=== PATIENT | male | born 1925 | race Caucasian/White ===

== ENCOUNTER → 2016-08-03 | Outpatient (CLI) | payer OTHER, MEDICARE | LOC: BHLMT 14:15 | PROVIDERS: ATTEND Internal Medicine Interventional Cardiology | DX: I25.10 Atherosclerotic heart disease of native coronary artery without angina pectoris (principal); I50.32 Chronic diastolic (congestive) heart failure; I48.0 Paroxysmal atrial fibrillation; R07.9 Chest pain, unspecified | CPT/HCPCS: 93005-PO ==

== ENCOUNTER 2016-08-12 17:26 | Inpatient (IN) | payer OTHER, MEDICARE ==
[2016-08-12] MEDS ORDERED: NS 1,000 ML IV ONE (17:30)
--- NOTE | 2016-08-12 17:34 | EDPHY ---
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 He lives up in [place] he was due to have a cardiac catheterization today. However unfortunately cannot make his appointment 9 this morning because there is extensive amount of snow at his house. He is elderly and had no way to get to the hospital. He has missed his cardiac catheterization. During the day developed chest pressure. Tells me 3 episodes lasting 20-30 minutes. Currently no chest pain at this time. Did arrive to the emergency room by EMS where he has no complaints at this time. Does tell me he is tired. Denies chest pain shortness of breath. EMS reports that he has 70% blockage in 1 of his blood vessels. Past Medical History: Coronary artery disease, no stents, AFib on Coumadin Past Surgical History: No recent surgical history Social History: Denies daily use drugs alcohol tobacco products, lives in [place] Family History: Noncontributory ROS REVIEW OF SYSTEMS: A comprehensive 10 point review of systems is otherwise negative aside from elements mentioned in the history of present illness. Exam Constitutional appears well nontoxic, triage nursing summary reviewed, vital signs reviewed, awake/alert. Eyes normal conjunctivae and sclera, EOMI, PERRLA. HENT normal inspection, atraumatic, moist mucus membranes, no epistaxis, neck supple/ no meningismus, no raccoon eyes. Respiratory clear to auscultation bilaterally, normal breath sounds, no respiratory distress, no wheezing. Cardiovascular rate normal, regular rhythm, no murmur, no edema, distal pulses normal. Gastrointestinal soft, non-tender, no rebound, no guarding, normal bowel sounds, no distension, no pulsatile mass. Genitourinary no CVA tenderness. Musculoskeletal no midline vertebral tenderness, full range of motion, no calf swelling, no tenderness of extremities, no meningismus, good pulses, neurovascularly intact. Skin pink, warm, & dry, no rash, skin atraumatic. Neurologic awake, alert and oriented x 3, AAOx3, moves all 4 extremities equally, motor intact, sensory intact, CN II-XII intact, normal cerebellar, normal vision, normal speech. Psychiatric normal mood/affect. Heme/Lymph/Immune no lymphadenopathy. Differential diagnosis includes but is not limited to: ACS, atypical chest pain , pneumothorax, pneumonia, pulmonary embolism, aortic dissection, congestive heart failure, tumor, musculoskeletal pain, esophageal pain, GERD, peptic ulcer disease, pancreatitis Medical Decision Making: Plan for this patient IV establishment, full secured entrance monitor, EKG, blood work, rule out acute coronary syndrome. Re-evaluation: EKG interpretation by me on record in [employer] system. Impression time of EKG 1744, sinus rhythm rate of [address] elevations heels EKG similar to a previous morphology of this EKG when compared to 10/10/2015. 182: Patient's troponin is negative. I did notify Cardiology and spoke with Dr. Knutson, will notify Dr. Fraire that this patient is in the emergency room as he was due to have a cardiac catheterization today. Patient need to be admitted to the hospital for chest pain evaluation and cardiac catheterization. Currently chest pain free at this time. Troponin negative. Vital signs stable. Limited to Dr. Stacy the hospitalist. Source: Patient, EMS - Social History Smoking Status: Former smoker Constitutional: Initial Vital Signs O2 Sat (%) 96 08/12/16 17:30 O2 Delivery Mode Nasal Cannula O2 (L/minute) 3 Allergies/Adverse Reactions: aspirin [Aspirin] Allergy (Severe, Verified 08/12/16 17:34) Other-Enter Comments NSAIDS (Non-Steroidal Anti-Inflamma [Nsaids] Allergy (Severe, Verified 08/12/16 17:34) Other-Enter Comments Home Medications: Medication Instructions Recorded Doxazosin Mesylate 4 mg PO HS 08/12/16 Herbals/Supplements -Info Only 1 ea PO DAILY 08/12/16 Isosorbide Mononitrate [Isosorbide 60 mg PO DAILY 08/12/16 Mononitrate ER] Metoprolol Tartrate [Lopressor 50 25 mg PO BID 08/12/16 mg (*)] Nitroglycerin [Nitrostat 0.4 mg 0.4 mg SL AD PRN 08/12/16 (*)] Omeprazole 40 mg PO DAILY 08/12/16 Warfarin Sodium [Coumadin 5MG (*)] 5 mg PO DAILY 08/12/16 Acetaminophen [Tylenol 325mg (*)] 650 mg PO Q4HRS PRN #0 tab 08/14/16 Enoxaparin [Lovenox 80 MG (*)] 80 mg SC BID #10 syr 08/14/16 Furosemide [Lasix 40 MG (*)] 40 mg PO DAILY 30 Days 08/14/16 Metolazone 2.5 mg PO PRN PRN #30 tablet 08/14/16 Prasugrel HCl [Effient 10mg (*)] 10 mg PO DAILY #30 tab 08/14/16 Medical Decision Making - Data Points Laboratory Results: Laboratory Results 08/13/16 04:01 08/13/16 01:38 Medications Given: Discontinued Medications Diazepam (Valium) 5 mg PO ONCALL ONE Stop: 08/13/16 09:34 Last Admin: 08/13/16 15:47 Dose: Not Given Diphenhydramine HCl (Benadryl) 25 mg PO ONCALL ONE Stop: 08/13/16 09:34 Last Admin: 08/13/16 15:47 Dose: Not Given Doxazosin Mesylate (Cardura) 4 mg PO HS JAH Stop: 02/09/17 20:59 Last Admin: 08/13/16 20:10 Dose: 4 mg Enoxaparin Sodium (Lovenox) 80 mg SC BID JAH Stop: 02/10/17 08:59 Last Admin: 08/14/16 09:59 Dose: 80 mg Famotidine (Pepcid) 20 mg PO ONCALL ONE Stop: 08/13/16 09:34 Last Admin: 08/13/16 15:47 Dose: Not Given Sodium Chloride (Ns) 1,000 mls @ 0 mls/hr IV ONCE ONE PRN Reason: Wide Open Stop: 08/12/16 17:31 Last Admin: 08/12/16 17:49 Dose: 1,000 mls Potassium Chloride (Potassium Cl 10 Meq (Premix)) 100 mls @ 100 mls/hr IV Q1 JAH Stop: 08/13/16 10:59 Last Admin: 08/13/16 09:14 Dose: Not Given Sodium Chloride (Ns) 1,000 mls @ 0 mls/hr IV ONCALL ONE PRN Reason: TKO Stop: 08/13/16 09:34 Last Admin: 08/13/16 15:47 Dose: Not Given Sodium Chloride (Ns) 1,000 mls @ 100 mls/hr IV CONT JAH Stop: 08/14/16 00:14 Last Admin: 08/13/16 16:07 Dose: 1,000 mls Isosorbide Mononitrate (Imdur) 60 mg PO DAILY JAH Stop: 02/09/17 08:59 Last Admin: 08/14/16 09:58 Dose: 60 mg Metoprolol Tartrate (Lopressor) 25 mg PO BID JAH Stop: 02/09/17 08:59 Last Admin: 08/14/16 09:58 Dose: 25 mg Pantoprazole Sodium (Protonix) 40 mg PO DAILY [facility] Stop: 02/09/17 08:59 Last Admin: 08/14/16 09:58 Dose: 40 mg Potassium Chloride (Klor-Con) 40 meq PO ONCE ONE Stop: 08/13/16 09:31 Last Admin: 08/13/16 09:00 Dose: 40 meq Prasugrel (Effient) 10 mg PO DAILY [facility] Stop: 02/10/17 08:59 Last Admin: 08/14/16 09:58 Dose: 10 mg Prasugrel (Effient) 60 mg PO ONCE ONE Stop: 08/13/16 14:10 Last Admin: 08/13/16 15:48 Dose: Not Given Warfarin Sodium (Coumadin) 5 mg PO ONCE ONE Stop: 08/14/16 08:37 Last Admin: 08/14/16 09:58 Dose: 5 mg Departure - Departure Disposition: [facility] Inpatient Acute Clinical Impression: Chest pain Qualifiers: Chest pain type: unspecified Qualified Code(s): R07.9 - Chest pain, unspecified Condition: Fair
--- NOTE | 2016-08-12 17:47 | CPEKG ---
Heart Rate: 73 RR Interval: 822 P-R Interval: 184 QRSD Interval: 100 QT Interval: 428 QTC Interval: 472 P [place]: 62 QRS [place]: 30 T Wave [place]: 5 EKG Severity - BORDERLINE ECG - EKG Impression: SINUS RHYTHM EKG Impression: CONSIDER RVH OR POSTERIOR INFARCT Electronically Signed By: Wyatt Rothman 12-Aug-2016 21:34:07
[2016-08-12 18:08] LABS: % IMMATURE GRANULYOCYTES 0.5 % (0.0-1.1); ABSOLUTE IMMATURE GRANULOCYTES 0.04 10^3/uL (0.00-0.10); ADD DIFF? NO; ADD MORPH? NO; ADD SCAN? NO; ATYPICAL LYMPHOCYTE FLAG 0 (0-99); FRAGMENT RBC FLAG 0 (0-99); HEMATOCRIT 31.4 % (40.0-51.0); HEMOGLOBIN 10.9 g/dL (13.7-17.5); LEFT SHIFT FLG 0 (0-99); LIPEMIA HEMOLYSIS FLAG 90 (0-99); MEAN CELL HEMOGLOBIN 33.1 pg (27.9-34.1); MEAN CELL HEMOGLOBIN CONCENTR. 34.7 g/dL (32.4-36.7); MEAN CELL VOLUME 95.4 fL (81.5-99.8); MEAN PLATELET VOLUME 9.9 fL (8.7-11.7); PLATELET CLUMPS FLAG 0 (0-99); PLATELET COUNT 244 10^3/uL (150-400); RED BLOOD CELL COUNT 3.29 10^6/uL (4.40-6.38); RED CELL DISTRIBUTION WIDTH 13.2 % (11.5-15.2)
[2016-08-12 18:13] LABS: APTT 28.1 SEC (23.0-38.0)
[2016-08-12 18:14] LABS: ALANINE AMINOTRANSFERASE 30 IU/L (21-72); ALBUMIN 3.7 g/dL (3.5-5.0); ALKALINE PHOSPHATASE 55 IU/L (38-126); ANION GAP 10 mEq/L (8-16); ASPARTATE AMINOTRANSFERASE 18 IU/L (17-59); BILIRUBIN,TOTAL 0.9 mg/dL (0.1-1.4); BILIRUBIN-CONJUGATED 0.3 mg/dL (0.0-0.5); BILIRUBIN-UNCONJUGATED 0.6 mg/dL (0.0-1.1); CALCIUM 8.9 mg/dL (8.5-10.4); CARBON DIOXIDE 28 mEq/l (22-31); CHLORIDE 100 mEq/L (97-110); CREATININE 1.5 mg/dL (0.7-1.3); GLOMERULAR FILTRATION RATE 44; GLUCOSE 99 mg/dL (70-100); MAGNESIUM 2.1 mg/dL (1.6-2.3); POTASSIUM 3.3 mEq/L (3.5-5.2); SODIUM 138 mEq/L (134-144); TOTAL PROTEIN 6.9 g/dL (6.3-8.2)
[2016-08-12 18:18] LABS: INR 1.22 (0.83-1.16); PROTIME(PATIENT) 15.4 SEC (12.0-15.0)
[2016-08-12 18:25] LABS: CREATINE KINASE-MB FRACTION 1.39 ng/mL (0-3.19); TROPONIN I < 0.012 ng/mL (0-0.034)
[2016-08-12] MEDS ORDERED: ACETAMINOPHEN 325 MG TAB PO PRN (21:48)
[2016-08-12] MEDS ORDERED: ONDANSETRON DISINTEGRATING 4 MG TAB PO PRN (21:48)
[2016-08-12] MEDS ORDERED: ONDANSETRON 4 MG/2 ML VIAL IVP PRN (21:48)
[2016-08-12] MEDS ORDERED: NITROGLYCERIN 0.4 MG BTL SL PRN (21:50)
--- NOTE | 2016-08-12 22:31 | GHP ---
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 Luis Daniel Fraire today. The patient lives in [place]. There is a significant snowstorm and he was therefore un able to make the hospital. He had a couple episodes of chest pain, 3 or 4 that lasted a few minutes each time so he sought care. When I see the patient, he is currently chest pain-free. He denies P ND, orthopnea or lower extremity edema. No fever or chills. REVIEW OF SYSTEMS: Complete 10-point review of systems conducted, negative except as noted in the H PI. PAST MEDICAL HISTORY: Coronary artery disease. In January 2015, he had an angiogram showing a 70% -80% left circumflex at the ostium upon which was not intervened. His other vessel including his le ft main and RCA looked pretty good. He has also has a history of atrial fibrillation and hypertensi on and BPH. ALLERGIES: Aspirin and NSAIDs. HOME MEDICATIONS: Warfarin, nitroglycerin, metoprolol, metolazone, isosorbide mononitrate, Lasix, d oxazosin. SOCIAL HISTORY: He lives in [place]. He has been there for about 20 years. He is a nonsmoker . He and his split 132 beer at lunch every day. FAMILY HISTORY: Parents . PHYSICAL EXAM: VITAL SIGNS: Temp 36.7, blood pressure 96/59, pulse 67, breathing 18 times a minute , 94% on 2 L. GENERAL: No acute distress, lying flat. HEENT: Sclerae anicteric. Oropharynx clear . Mucous membranes moist. NECK: Supple without lymphadenopathy or JVD. LUNGS: Clear to ausculta tion bilaterally. HEART: S1, S2 without murmurs. ABDOMEN: Soft, nontender, nondistended. LOWER EXTREMITIES: No edema. Calves nontender. SKIN: Without rash. NEUROLOGIC: Nonfocal. LABS: White count 8.6, hematocrit 31.4, platelets are 244,000. INR is 1.2. Sodium 138, potassium 3.3, chloride 100, bicarb 28, BUN 33, creatinine 1.5. This is a little lower than his baseline. Gl ucose 99. BNP is elevated at 851. It has been as high as 4000 but in general is in a relatively lo w number. Troponin less than 0.012. EKG, interpreted by me shows sinus at 73 with normal axis and intervals. No ST or T-wave changes. Chest x-ray, interpreted by me, shows no acute cardiopulmonary disease. I have discussed the case with Dr. Wyatt Rothman. ASSESSMENT AND PLAN: This is an 89-year-old gentleman with chronic stable angina here with ongoing chest pain. 1. Chest pain. I think this is not ACS at this time. I will repeat a troponin now in the morning and follow him on telemetry. Will try to get a scheduled angiogram done tomorrow. 2. Atrial fibrillation. He is in sinus when I seen him. He is anti coagulable. I will hold his w arfarin. It appears he has been doing so as an outpatient and his INR is 1.2. It has been therapeu tic at other times here. 3. Decreased hematocrit. His previous baseline had been in the low 40s. It is currently 31. He d oes not appear to be actively bleeding. We will follow. 4. Elevated BUN and creatinine. I will hold his diuretics. Maybe the patient has been over diures ed. 5. Prophylaxis. Pharmacologic prophylaxis indicated if in the hospital for a prolonged period of t yulia. DISPOSITION: Observation status. /[id number]/MODL
[2016-08-13 05:00] LABS: % IMMATURE GRANULYOCYTES 0.7 % (0.0-1.1); ABSOLUTE IMMATURE GRANULOCYTES 0.05 10^3/uL (0.00-0.10); ADD DIFF? NO; ADD MORPH? NO; ADD SCAN? NO; ATYPICAL LYMPHOCYTE FLAG 0 (0-99); FRAGMENT RBC FLAG 0 (0-99); HEMATOCRIT 29.6 % (40.0-51.0); HEMOGLOBIN 10.1 g/dL (13.7-17.5); LEFT SHIFT FLG 0 (0-99); LIPEMIA HEMOLYSIS FLAG 90 (0-99); MEAN CELL HEMOGLOBIN 32.9 pg (27.9-34.1); MEAN CELL HEMOGLOBIN CONCENTR. 34.1 g/dL (32.4-36.7); MEAN CELL VOLUME 96.4 fL (81.5-99.8); PLATELET CLUMPS FLAG 0 (0-99); PLATELET COUNT 222 10^3/uL (150-400); RED BLOOD CELL COUNT 3.07 10^6/uL (4.40-6.38); RED CELL DISTRIBUTION WIDTH 13.4 % (11.5-15.2)
[2016-08-13 05:29] LABS: ANION GAP 9 mEq/L (8-16); CALCIUM 8.8 mg/dL (8.5-10.4); CARBON DIOXIDE 28 mEq/l (22-31); CHLORIDE 104 mEq/L (97-110); CREATININE 1.2 mg/dL (0.7-1.3); GLOMERULAR FILTRATION RATE 57; GLUCOSE 119 mg/dL (70-100); POTASSIUM 3.2 mEq/L (3.5-5.2); SODIUM 141 mEq/L (134-144)
[2016-08-13 05:30] LABS: TROPONIN I 0.021 ng/mL (0-0.034)
[2016-08-13] MEDS ORDERED: POTASSIUM CL 10 MEQ TAB ONE (08:50)
[2016-08-13] MEDS ORDERED: FUROSEMIDE 40 MG TAB PO SCH (09:00)
[2016-08-13] MEDS ORDERED: POTASSIUM Cl (KCl) 100 ML IV SCH (09:00)
[2016-08-13] MEDS ORDERED: Herbals/Supplements -Info Only PO SCH (09:00)
[2016-08-13] MEDS ORDERED: METOLAZONE 2.5 MG TAB PO SCH (09:00)
[2016-08-13] MEDS: PANTOPRAZOLE SODIUM 40 MG TAB PO SCH (09:13)
[2016-08-13] MEDS: METOPROLOL TARTRATE 25 MG TAB PO SCH ×2 (09:13→20:10)
[2016-08-13] MEDS: ISOSORBIDE MONONITRATE 30 MG TAB.SR PO SCH (09:14)
[2016-08-13] MEDS ORDERED: POTASSIUM CL 10 MEQ TAB PO ONE (09:30)
[2016-08-13] MEDS ORDERED: FAMOTIDINE 20 MG TAB PO ONE (09:33)
[2016-08-13] MEDS ORDERED: diphenhydrAMINE 25 MG CAP PO ONE (09:33)
[2016-08-13] MEDS ORDERED: NS 1,000 ML IV ONE (09:33)
[2016-08-13] MEDS ORDERED: DIAZEPAM 5 MG TAB PO ONE (09:33)
[2016-08-13 09:49] LABS: CHOLESTEROL 153 mg/dL (140-220); CHOLESTEROL/HDL RATIO 5.67 RATIO (1.00-4.97); HIGH DENSITY LIPOPROTEIN 27 mg/dL (40-65); LDL/HDL RATIO 3.41 RATIO (1.00-3.64); LOW DENSITY LIPOPROTEIN 92 mg/dL (80-100); MAGNESIUM 2.2 mg/dL (1.6-2.3); NON-HIGH DENSITY LIPOPROTEIN 126 mg/dL (90-129); TRIGLYCERIDE 172 mg/dL (40-150); VERY LOW DENSITY LIPOPROTEINS 34 mg/dL (8-25)
[2016-08-13] MEDS ORDERED: LIDOCAINE 1% 30 ML SDV ONE (11:21)
[2016-08-13] MEDS ORDERED: MIDAZOLAM 2 MG/2 ML VIAL ONE ×2 (11:21)
[2016-08-13] MEDS ORDERED: fentaNYL 100 MCG/2 ML INJ ONE (11:21)
[2016-08-13] MEDS ORDERED: BIVALIRUDIN 250 MG/5 ML VIAL IV ONE (11:22)
[2016-08-13] MEDS ORDERED: NITROGLYCERIN 1,500 MCG/15 ML VIAL MISC ONE ×2 (11:22→13:04)
[2016-08-13] MEDS ORDERED: IOPAMIDOL (ISOVUE-370) 150 ML BTL IV ONE ×3 (11:22→13:15)
[2016-08-13] MEDS ORDERED: ATROPINE SULFATE 1 MG/10 ML SYR ONE (12:54)
[2016-08-13] MEDS ORDERED: EPINEPHrine 1 MG/10 ML SYR IVP ONE (12:54)
[2016-08-13] MEDS ORDERED: PRASUGREL HCL 10 MG TAB ONE (13:30)
[2016-08-13] MEDS ORDERED: HYDROCODONE/APAP 5/325 TAB PO PRN (14:09)
[2016-08-13] MEDS ORDERED: PRASUGREL HCL 10 MG TAB PO ONE (14:09)
[2016-08-13] MEDS ORDERED: LORazepam 2 MG/ML INJ IVP PRN (14:09)
[2016-08-13] MEDS ORDERED: TEMAZEPAM 15 MG CAP PO PRN (14:09)
[2016-08-13] MEDS ORDERED: ATROPINE SULFATE 1 MG/10 ML SYR IVP PRN (14:09)
[2016-08-13] MEDS ORDERED: NS 1,000 ML IV SCH (14:15)
--- NOTE | 2016-08-13 14:26 | PDDXCAT ---
Diagnostic Cath Note - . Date: 08/13/16 [employer]: [place] Indication: CCC Class III and IV angina on medical treatment - Procedure Access: right groin Procedure: left heart catheterization, coronary angiography, left ventriculogram , other (IVUS of ramus intermedius; PCI of ramus intermedius) - Materials Left Heart Cath size: 7F Left Heart Cath materials: standard multipack (JL4, JR4, pigtail) - Findings-Left Heart Catheterization LM: Normal. LAD: Mild irregularities. LCX: Ostial 50%; (appears significantly less severe than Jan 2015 catheterization); o/w mild irregularities. RCA: Mild irregularities. Ramus: Two serial, proximal lesions up to 60 to 70% angiographically; (IVUS revealed high grade stenoses with CSA < 4 sq mm); o/w mild irregularites. LVEF: 55% Wall motion: Inferobasilar dyskinesis. Complications: None Estimated blood loss: <50ml Closure method: Angioseal Assessment: 1) Overall preserved LV systolic function with inferobasilar dyskinesis consistent with a prior circumflex territory SC. 2) Coronary artery disease as described above. 3) Successful PCI of the ramus intermedius using a single bare-metal stent. Plan: The patient will be started on Effient as single antiplatelet therapy because of his history of aspirin allergy and inlight of the fact that he is on chronic systemic anticoagulation with warfarin for his history of paroxysmal atrial fibrillation. Since he cannot take aspirin, he should be bridged with Lovenox as he restarts his warfarin. I would like for him to have an INR performed Tuesday or of next week. In a few weeks, his Effient can be held to allow him to undergo a previously planned knee replacement surgery. Genetic testing for clopidogrel metabolism has been requested. Depending on those results, he will likely be placed on clopidogrel as his antiplatelet agent for long-term prevention of acute coronary events. Intervention: Based on his clinical history and diagnostic angiography, the decision was made to perform intravascular ultrasound of the ramus intermedius and circumflex with possible PCI of both. The patient received intravenous Angiomax. A 7 Telugu CLS 4.0 guide catheter was advanced to the left main. An intuition guidewire was advanced to the distal portion of the ramus intermedius. An IVUS catheter was advanced to the midportion of the vessel and a pullback examination was performed demonstrating diffuse, significant atherosclerosis and at least 2 areas of high-grade stenosis with cross-sectional area less than 4.0 mm. Therefore, the decision was made to perform PCI of the ramus intermedius. Predilatation of the proximal ramus was performed using a 2.5 x 15 mm Emerge balloon. A 2.75 x 20 mm Rebel stent was advanced into position and was deployed at high pressure. Subsequent angiography demonstrated 0% residual stenosis and ANGIE-III flow. Multiple attempts were made to pass the guidewire into the circumflex. However, because of the acutely angulated take-off of the circumflex, these were unsuccessful. At this point I felt that the ramus intermedius was the lesion most responsible for the patient's angina and that this had been Effectively treated. The inferobasilar dyskinetic zone on the patient's left ventriculogram fits the distribution of the circumflex and a November 2014 nuclear stress test demonstrated a fixed defect in this territory with minimal scott-infarction reversible ischemia. If the patient continues to have significant angina, a repeat attempt at PCI of the circumflex can be considered. Patient Problems: Problems Problem Status Onset Chest pain Acute
--- NOTE | 2016-08-13 14:36 | CPEKG ---
Heart Rate: 68 RR Interval: 882 P-R Interval: 188 QRSD Interval: 86 QT Interval: 432 QTC Interval: 460 P [place]: 64 QRS [place]: -15 T Wave [place]: -1 EKG Severity - ABNORMAL ECG - EKG Impression: SINUS RHYTHM EKG Impression: CONSIDER RVH OR POSTERIOR INFARCT EKG Impression: INFERIOR INFARCT, AGE INDETERMINATE Electronically Signed By: Lula Simpson 13-Aug-2016 14:40:56
--- NOTE | 2016-08-13 15:03 | HOSPPROG ---
Hospitalist Progress Note Assessment/Plan: 89 y/o male new to my care today presenting with: #chest pain found to have 60-70% occlusion of the ramus s/p successful PCI of the ramus intermedius using a single bare-metal stent -cont care per cards #Anemia (stable) -recommend outpatient workup #jacqui (improving) -repeat labs in AM #mild hypokalemia -replace per protocol Dispo: change to inpatient status Subjective: no chest pain. no sob Objective: Vital Signs Temp Pulse Resp BP Pulse Ox 36.6 C 63 14 136/73 H 96 08/13/16 07:45 08/13/16 09:13 08/13/16 07:45 08/13/16 09:13 08/13/16 07:45 Laboratory Results 08/13/16 04:01 08/13/16 01:38 08/12/16 08/13/16 08/14/16 05:59 05:59 05:59 Intake Total 1300 Output Total 325 Balance 1300 -325 PT 15.4 SEC (12.0-15.0) H 08/12/16 17:54 INR 1.22 (0.83-1.16) H 08/12/16 17:54 - Physical Exam Constitutional: no apparent distress, appears nourished, not in pain Cardiovascular: regular rate and rhythym, no murmur, rub, or gallop Respiratory: no respiratory distress, no rales or rhonchi, clear to auscultation Gastrointestinal: normoactive bowel sounds, soft, non-tender abdomen, no palpable masses Genitourinary: no bladder fullness, no bladder tenderness ICD10 Worksheet Patient Problems: Problems Problem Status Onset Chest pain Acute
[2016-08-13] MEDS ORDERED: DOXAZOSIN MESYLATE 4 MG TAB PO SCH (21:00)
[2016-08-14 05:23] LABS: HEMATOCRIT 32.4 % (40.0-51.0); HEMOGLOBIN 10.8 g/dL (13.7-17.5); MEAN CELL HEMOGLOBIN 32.8 pg (27.9-34.1); MEAN CELL HEMOGLOBIN CONCENTR. 33.3 g/dL (32.4-36.7); MEAN CELL VOLUME 98.5 fL (81.5-99.8); RED BLOOD CELL COUNT 3.29 10^6/uL (4.40-6.38); RED CELL DISTRIBUTION WIDTH 13.6 % (11.5-15.2)
[2016-08-14 05:24] LABS: % IMMATURE GRANULYOCYTES 0.6 % (0.0-1.1); ABSOLUTE IMMATURE GRANULOCYTES 0.05 10^3/uL (0.00-0.10); ADD DIFF? NO; ADD MORPH? NO; ADD SCAN? NO; ATYPICAL LYMPHOCYTE FLAG 0 (0-99); FRAGMENT RBC FLAG 0 (0-99); LEFT SHIFT FLG 0 (0-99); LIPEMIA HEMOLYSIS FLAG 80 (0-99); MEAN PLATELET VOLUME 10.2 fL (8.7-11.7); PLATELET CLUMPS FLAG 10 (0-99); PLATELET COUNT 248 10^3/uL (150-400)
[2016-08-14 06:01] LABS: ANION GAP 8 mEq/L (8-16); ASPARTATE AMINOTRANSFERASE 16 IU/L (17-59); BILIRUBIN,TOTAL 0.6 mg/dL (0.1-1.4); CALCIUM 8.7 mg/dL (8.5-10.4); CARBON DIOXIDE 25 mEq/l (22-31); CHLORIDE 109 mEq/L (97-110); GLOMERULAR FILTRATION RATE > 60; GLUCOSE 90 mg/dL (70-100); LACTATE DEHYDROGENASE 361 IU/L (313-618); MAGNESIUM 2.1 mg/dL (1.6-2.3); POTASSIUM 4.1 mEq/L (3.5-5.2); SODIUM 142 mEq/L (134-144)
--- NOTE | 2016-08-14 06:01 | CPEKG ---
Heart Rate: 68 RR Interval: 882 P-R Interval: 172 QRSD Interval: 98 QT Interval: 404 QTC Interval: 430 P [place]: 64 QRS [place]: 2 T Wave [place]: 21 EKG Severity - ABNORMAL ECG - EKG Impression: SINUS RHYTHM EKG Impression: CONSIDER RIGHT VENTRICULAR HYPERTROPHY EKG Impression: PROBABLE LEFT VENTRICULAR HYPERTROPHY Electronically Signed By: Lula Simpson 14-Aug-2016 12:16:21
[2016-08-14] MEDS ORDERED: WARFARIN SODIUM 5 MG TAB PO ONE (08:36)
[2016-08-14] MEDS ORDERED: PRASUGREL HCL 10 MG TAB PO SCH (09:00)
[2016-08-14] MEDS ORDERED: ENOXAPARIN 80 MG/0.8 ML SYR SC SCH (09:00)
--- NOTE | 2016-08-14 09:21 | PDDCSUM ---
Discharge Summary Discharge Summary: Dates of service 08/12-08/14/16 Discharge dx: # Unstable angina # CAD # a fib # deconditioning Consultations: cardiology Procedures performed: coronary angiography, PCI to [facility] Hospital course by problem: #chest pain/unstable angina: found to have 60-70% occlusion of the ramus s/p successful PCI of the ramus intermedius using a single bare-metal stent. continue bb and isosorbide # CAD: as above, med mgmt including effient (intolerant of asa) and bb. No statin, LDL of 92. Cardiology aware he is not on statin and they will address when he follows up with them #Anemia (stable) -recommend outpatient workup # afib: rate controlled, dc home on AC with lovenox and warfarin #jacqui (improving) resolved, pre renal #mild hypokalemia -replace per protocol # deconditioning: snf recommended but patient refused, understands risk of going home and states that he is not considering other options no matter what. Dc with home health DC home with home health F/u with pcp and cardiology > 35 minutes spent in dc of patient more than half in coordination of care with CM/cardiology/PT and face to face counseling regarding dc to home with home health rather than to snf with patient and his
--- NOTE | 2016-08-14 09:29 | PDCARPN ---
Cardiology Progress Note Chief Complaint: unstable angina Assessment/Plan: Assessment: 89M PMH CAD/no previous PCI due to anatomy, DCHF, PAF on Coumadin for [id number] of 3-4, dyslipidemia intolerant of statin, who was having worsening despite 2 anti-anginals and BB, here for PCI. Pt new to me. Chart and outpatient notes reviewed and summarized. INR for today. #. unstable angina: s/p PCI to [place] still has obstructive lesion in LCx follow medically with Dr. Fraire continue anti-anginals intolerant of ASA (listed as allergy) so will be treated with Warfarin and Effient INR today and bridge with [facility] Anticoag clinic on Tuesday #. DCHF: appears euvolemic currently continue Lasix but do not take Metolazone unless weight gain >3 lbs #. PAF: no AF on monitoring Warfarin with bridging #. dyslipidemia: LDL 92 not on statin #. hypokalemia: resolved #. DANIEL: resolved will dose Metolazone only prn Plan: Stable to discharge with outpatient follow-up 08/14/16 09:23 08/14/16 09:29 Subjective: Reports knee pain and weakness. No dyspnea or edema currently though knees and ankles will occasionally swell. No cp. Reviewed/Discussed With: hospitalist Objective: Vital Signs (8 Hrs) Temp Pulse Resp BP Pulse Ox 08/14/16 03:56 98.1 F 70 18 137/68 H 92 Intake/Output (24 Hrs) 08/13/16 08/14/16 08/15/16 05:59 05:59 05:59 Intake Total 850 Output Total 725 Balance 125 Intake: Oral (ml) 500 IV Intake (ml) 350 Output: Urine (ml) 725 Urinal 725 Other: Number of Voids Urinal 1 Result Diagrams: 08/14/16 03:53 08/14/16 03:53 Telemetry: SR - Physical Exam Constitutional: cachectic, No general pain Eyes: anicteric sclera Cardiovascular: regular rate and rhythm, no murmurs Respiratory: clear to auscultate bilat, no crackles Gastrointestinal: normoactive bowel sounds, No tenderness, No ascites Genitourinary: No mack in urethra Skin: no rashes, no edema Neurologic: AAOx3 Psychiatric: cooperative, interactive ICD10 Worksheet Patient Problems: Problems Problem Status Onset Chest pain Acute
[2016-08-14] MEDS: METOPROLOL TARTRATE 25 MG TAB PO SCH (09:58)
[2016-08-14] MEDS: PANTOPRAZOLE SODIUM 40 MG TAB PO SCH (09:58)
[2016-08-14] MEDS: ISOSORBIDE MONONITRATE 30 MG TAB.SR PO SCH (09:58)
[2016-08-14 11:01] VITALS: RESP 20; O2SAT 96
[2016-08-14 11:20] LABS: INR 1.18 (0.83-1.16)
[2016-08-14 12:34] VITALS: PULSE 68; TEMP 98.4
[2016-08-14 12:36] VITALS: BP 94/54
--- NOTE | 2016-08-14 12:47 | PDIAF ---
- Diagnosis Code Status: Full Code - Medication Management Discharge Medications: Medications to Continue on Transfer Doxazosin Mesylate 4 mg PO HS 08/12/16 [Last Taken 08/11/16] Herbals/Supplements -Info Only 1 ea PO DAILY 08/12/16 [Last Taken Unknown] Isosorbide Mononitrate [Isosorbide Mononitrate ER] 60 mg PO DAILY 08/12/16 [ Last Taken 08/12/16] Metoprolol Tartrate [Lopressor 50 mg (*)] 25 mg PO BID 08/12/16 [Last Taken 09:00 25MG] Nitroglycerin [Nitrostat 0.4 mg (*)] 0.4 mg SL AD PRN 08/12/16 [Last Taken Unknown] Omeprazole 40 mg PO DAILY 08/12/16 [Last Taken 08/12/16] Warfarin Sodium [Coumadin 5MG (*)] 5 mg PO DAILY 08/12/16 [Last Taken 08/08/16] Acetaminophen [Tylenol 325mg (*)] 650 mg PO Q4HRS PRN #0 tab 08/14/16 [Last Taken Unknown] Enoxaparin [Lovenox 80 MG (*)] 80 mg SC BID #10 syr 08/14/16 [Last Taken Unknown ] Furosemide [Lasix 40 MG (*)] 40 mg PO DAILY 30 Days 08/14/16 [Last Taken Unknown ] Metolazone 2.5 mg PO PRN PRN #30 tablet 08/14/16 [Last Taken Unknown] Prasugrel HCl [Effient 10mg (*)] 10 mg PO DAILY #30 tab 08/14/16 [Last Taken Unknown] Discharge Medications: Refer to the Discharge Home Medication list for PRN reason. - Orders Services needed: Home Care, Registered Nurse, Physical Therapy, Occupational Therapy Home Care Face to Face: I certify that this patient was under my care and that I had the required [id number] encounter meeting the encounter requirements on the discharge day. My findings support the fact that the patient is homebound as defined in CMS Chapter 7 Medicare Benefits Manual 30.1.1, The condition of the patient is such that there exists a normal inability to leave home and consequently, leaving home would require a considerable and taxing effort. Diet Recommendation: cardiac -low fat low salt Additional: OK to wait for 1 week until home health can come to evaluate - Labs/Radiology PT/INR Date: 08/17/16 (q3 days until INR between 2-3) - Follow Up Care Current Providers and Referrals: Patient,NotPresent [Unknown] - As per Instructions Luis Daniel Fraire MD [Medical Doctor] - 08/24/16 2:45 pm
[2016-08-16 14:10] LABS: 2C19S INTERPRETATION See Comments
== END 2016-08-14 14:35 | disposition home health service (06) | DRG 249 ==
LOC: EDUNIT# → INTOOBSV 18:32 → F2W 19:37 → OBSVTOIN 08-13 15:00
PROVIDERS: ADMIT Internal Medicine; ATTEND Internal Medicine
DX: I25.110 Atherosclerotic heart disease of native coronary artery with unstable angina pectoris (principal); E87.6 Hypokalemia; N17.9 Acute kidney failure, unspecified; I48.0 Paroxysmal atrial fibrillation; D64.9 Anemia, unspecified; I10 Essential (primary) hypertension; N40.0 Benign prostatic hyperplasia without lower urinary tract symptoms; Z79.01 Long term (current) use of anticoagulants
CPT/HCPCS: 81225-90; 97116-GP; 97162-GP; C1725; C1753; C1760; C1769; C1876; C1887; G0378; G8978-GP-CJ; G8979-GP-CI; J0461; J0583; J1644; J1650; J2250; J3010; Q9967

== ENCOUNTER 2016-10-13 09:38 | Inpatient (IN) | payer OTHER, MEDICARE ==
--- NOTE | 2016-10-11 08:48 | GHP ---
[f rep st] PREOP HISTORY AND PHYSICAL DATE OF ADMISSION: He will be an AM admission for surgery on October 13, 2016. PROBLEM: Bilateral knee degenerative arthritis. HISTORY OF PRESENT ILLNESS: The patient is an 89-year-old man admitted for a left total knee arthroplasty. He has a long history of progressive bilateral knee pain. He has had Supartz injections on multiple occasions with mild benefit. 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 Both knees are equally painful. Because of progressive pain and limitation of activities, he will undergo a left total knee arthroplasty. PAST MEDICAL HISTORY: He has a history of atrial fibrillation. He underwent a coronary artery stent on August 13, 2016. Dr. Luis Daniel Fraire is his attending physician. He has been on Plavix. He is also treated for hypertension. There is no history of DVT, hepatitis, or sleep apnea. CURRENT MEDICATIONS: Plavix 50 mg per day. Doxazosin 8 mg per day for his prostate. Lasix 40 mg per day. Metolazone 2.5 mg p.r.n. Metoprolol 50 mg 1/2 tablet b.i.d. Omeprazole 40 mg per day. Ranexa 1,000 mg extended release daily. Coumadin 5 mg 3 days a week and 7.5 mg 4 days a week. ALLERGIES: Aspirin causes swelling. Metal allergies: None. Latex allergy: None. SOCIAL HISTORY: He does not smoke cigarettes and occasionally drinks alcohol. 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 He is . FAMILY HISTORY: Positive for cancer. PHYSICAL EXAMINATION: GENERAL: He is an alert, healthy-appearing, elderly man. Height 5 feet 10 inches. Weight 185 pounds. BMI 26.5. EYES: The conjunctivae and sclerae are clear. Pupils are round, reactive. MOUTH: Good oral hygiene. No loose teeth. CHEST: Clear. HEART: Regular rhythm. No murmurs. EXTREMITIES: He lacks a few degrees of full extension and flexes to 110 degrees. Moderate patellofemoral crepitation. IMAGING: His films show severe patellofemoral degenerative arthritis. He is bone on bone in the lateral facet. Moderate degenerative changes in his tibiofemoral joints. IMPRESSION: On admission: 1. Bilateral knee degenerative arthritis. He is prepared for left total knee arthroplasty. 2. Coronary artery disease. Recent stent. History of atrial fibrillation. 3. Treatment for hypertension. PLAN: He will undergo a left total knee arthroplasty. The surgery has been described to him, including the risks, complications, expectations, and recovery time. I have stressed the importance of postoperative physical therapy. All his questions have been answered and he consents to surgery. I have discussed his care with Dr. Luis Daniel Fraire. Dr. Fraire has cleared him to proceed with surgery, even with his recent stent. Postoperatively, I will treat him with Lovenox and then restart his Coumadin. He has been on 5 mg 3 days a week and 7.5 mg 4 days a week. The rapid anticoagulation postoperatively will somewhat complicate his postoperative care. All his questions have been answered and he consents to surgery. Copy requested to: DESI Gonzales Dr. /[id number]/MODL MTDD
[~2016-10-13 09:38] MED LIST: POVIDONE-IODINE 20 ML in SODIUM CL IRRIG SOLUTION 500 ML IRR ONE; ROPIVACAINE 0.2% 80 MG, EPINEPHrine 0.2 MG, KETOROLAC TROMETHAMINE 30 MG in BAG 0 ML IU ONE; TRANEXAMIC ACID 750 MG in NS 100 ML IV ONE
[2016-10-13] MEDS ORDERED: DEXAMETHASONE 4 MG/ML VIAL IVP ONE (09:57)
[2016-10-13] MEDS ORDERED: ceFAZolin 2 GM/DEXTROSE 100 ML IV ONE (09:57)
[2016-10-13] MEDS ORDERED: ACETAMINOPHEN 325 MG TAB PO ONE (09:57)
[2016-10-13] MEDS ORDERED: FAMOTIDINE 20 MG TAB PO ONE (09:57)
[2016-10-13] MEDS ORDERED: LIDOCAINE 1% 2 ML INJ ONE (10:02)
[2016-10-13] MEDS ORDERED: LIDOCAINE 1% 2 ML INJ ID PRN (11:10)
[2016-10-13] MEDS ORDERED: LR 1,000 ML IV ONE (11:10)
[2016-10-13 11:14] LABS: INR 1.15 (0.83-1.16); PROTIME(PATIENT) 14.7 SEC (12.0-15.0)
[2016-10-13] MEDS ORDERED: METOPROLOL TARTRATE 25 MG TAB PO ONE (11:23)
--- NOTE | 2016-10-13 11:28 | PDANEPAE ---
ANE History of Present Illness 89 year old male with bilateral knee OA, here for L TKA. ANE Past Medical History - Cardiovascular History Hx Hypertension: Yes Hx Arrhythmias: No Hx Chest Pain: No Hx Coronary Artery / Peripheral Vascular Disease: Yes Hx CHF / Valvular Disease: No Hx Palpitations: No Cardiovascular History Comment: denies CP after stent placed 08-13-16. At time of stent placement, unable to enter the circumflex which also has stenosis per imaging. However stenting of ramus seems to have alleviated anginal symptoms at this time. - Pulmonary History Hx COPD: No Hx Asthma/Reactive Airway Disease: No Hx Recent Upper Respiratory Infection: No Hx Oxygen in Use at Home: Yes O2 in Use at Home (L/minute): O2 at 2L NC at night-sleeping Hx Sleep Apnea: No Sleep Apnea Screening Result - Last Documented: Positive Pulmonary History Comment: SOB on walking stairs. Denies asthma, COPD. Pulse Ox 96-97% at 8,500 ft - at home. - Neurologic History Hx Cerebrovascular Accident: No Hx Seizures: No Hx Dementia: No - Endocrine History Hx Diabetes: No - Renal History Hx Renal Disorders: No - Liver History Hx Hepatic Disorders: No - Neurological & Psychiatric Hx Hx Neurological and Psychiatric Disorders: Yes Neurological / Psychiatric History Comment: neck stiffness. Back soreness. - Cancer History Hx Cancer: Yes Cancer History Comment: Prostate CA - Congenital Disorder History Hx Congenital Disorders: No - GI History Hx Gastrointestinal Disorders: Yes Gastrointestinal History Comment: GERD - Other Health History Other Health History: OA bilat knees, hips. R hand "scab" -(not CA) - Chronic Pain History Chronic Pain: Yes (knees) - Surgical History Prior Surgeries: Heart Cath (w/bare metal stenting) 08-13-16. bilat arm fx surgery. R rotator cuff. Lap clare 2009. L ulnar nerve repositioned. hemorrhoidectomy 1983. Prostate-seed implantation ANE Review of Systems Review of systems is: negative (No angina since stent placed in July.) Review of Systems: No URI/fever x2 weeks. - Exercise capacity METS (RN): 3 METS - Systems Constitutional: Reports: no symptoms Cardiac: Reports: no symptoms Respiratory: Reports: no symptoms ANE Patient History - Allergies Allergies/Adverse Reactions: aspirin [Aspirin] Allergy (Severe, Verified 10/05/16 11:54) Other-Enter Comments NSAIDS (Non-Steroidal Anti-Inflamma [Nsaids] Allergy (Severe, Verified 10/05/16 11:54) Other-Enter Comments - Home Medications Home medications: home medication list seen and reviewed Home Medications: Doxazosin Mesylate 4 mg PO HS 08/12/16 [Last Taken 10/12/16 22:00] Herbals/Supplements -Info Only 1 ea PO DAILY 08/12/16 [Last Taken 10/12/16 10:00 ] Isosorbide Mononitrate [Isosorbide Mononitrate ER] 60 mg PO DAILY 08/12/16 [ Last Taken 10/12/16 08:00] Metoprolol Tartrate [Lopressor 50 mg (*)] 25 mg PO BID 08/12/16 [Last Taken 20:00] Nitroglycerin [Nitrostat 0.4 mg (*)] 0.4 mg SL AD PRN 08/12/16 [Last Taken Unknown] Omeprazole 40 mg PO DAILY 08/12/16 [Last Taken 10/13/16 07:30] Warfarin Sodium [Coumadin 5MG (*)] 5 mg PO DAILY 08/12/16 [Last Taken 10/08/16] - NPO status NPO Since - Liquids (Date): 10/12/16 NPO Since - Liquids (Time): 20:00 NPO Since - Solids (Date): 10/12/16 NPO Since - Solids (Time): 20:00 - Anes Hx Anes Hx: no prior problems - Smoking Hx Smoking Status: Former smoker Marijuana use: No - Alcohol Use Alcohol Use: Other (has a beer daily) - Family Anes Hx Family Anes Hx: neg - N/A ANE Labs/Vital Signs - Labs - CBC WBC: reviewed, anemia noted - Vital Signs Blood Pressure: 154/83 Heart Rate: 56 Respiratory Rate: 16 O2 Sat (%): 95 Height: 177.8 cm Weight: 76.204 kg ANE Physical Exam - Airway Neck exam: FROM Mallampati Score: Class 3 Mouth exam: normal dental/mouth exam - Pulmonary Pulmonary: clear to auscultation - Cardiovascular Cardiovascular: regular rate and rhythym, systolic murmur (faint I/ systolic murmur) - ASA Status ASA Status: III ANE Anesthesia Plan Anesthesia Plan: spinal
[2016-10-13] MEDS ORDERED: ceFAZolin 1 GM/5 ML SYR ONE ×2 (11:42→13:28)
[2016-10-13] MEDS ORDERED: VANCOMYCIN 1 GM VIAL ONE ×2 (11:42→12:08)
--- NOTE | 2016-10-13 12:15 | PDHPUP ---
History & Physical Update H&P update statement: This history and physical update is based on an assessment of the patient which was completed after admission or registration (within 24 hours), but prior to the surgery/procedure. H&P update: H&P reviewed & patient examined, no change in patient's condition since H&P completed
[2016-10-13] MEDS ORDERED: PROPOFOL/EMULSION 500 MG/50 ML BOTTLE IV ONE (12:54)
[2016-10-13] MEDS ORDERED: fentaNYL 100 MCG/2 ML INJ ONE (12:54)
[2016-10-13] MEDS ORDERED: ENALAPRILAT DIHYDRATE 1.25 MG/ML VIAL ONE (13:42)
[2016-10-13] MEDS ORDERED: DEXAMETHASONE 4 MG/ML VIAL ONE (13:42)
[2016-10-13] MEDS ORDERED: LIDOCAINE 2% 5 ML SDV ONE (13:42)
[2016-10-13] MEDS ORDERED: hydrALAZINE 20 MG/ML VIAL ONE (14:12)
[2016-10-13] MEDS ORDERED: BUPIVACAINE 0.5% 30 ML SDV ONE (14:47)
[2016-10-13] MEDS ORDERED: NALOXONE HCL 0.4 MG/ML INJ IVP PRN (15:01)
[2016-10-13] MEDS ORDERED: PROMETHAZINE HCL 25 MG/ML INJ IVP PRN ×2 (15:01→15:33)
[2016-10-13] MEDS ORDERED: fentaNYL 100 MCG/2 ML INJ IVP PRN (15:01)
[2016-10-13] MEDS ORDERED: OXYCODONE/APAP 5/325 TAB PO PRN (15:01)
[2016-10-13] MEDS ORDERED: ACETAMINOPHEN 500 MG TAB PO PRN (15:01)
[2016-10-13] MEDS ORDERED: ONDANSETRON 4 MG/2 ML VIAL IVP PRN ×2 (15:01→15:33)
--- NOTE | 2016-10-13 15:13 | POSTOPPROG ---
Post Op Note Date of Operation: 10/13/16 Surgeon: Vaibhav Yu Newspaper Vendor: Ari Anesthesiologist: Edie Anesthesia: IV Sedation, Spinal Post-op Diagnosis: Left knee severe degenerative arthritis. Procedure: Left total knee arthroplasty. Inf/Abcess present in the surg proc area at time of surgery?: No EBL: 100-500 (Adductor canal block)
[2016-10-13] MEDS ORDERED: LACTULOSE 20 GM/30 ML UDCUP PO PRN (15:33)
[2016-10-13] MEDS ORDERED: POLYETHYLENE GLYCOL 3350 17 GM PKT PO PRN (15:33)
[2016-10-13] MEDS ORDERED: METOCLOPRAMIDE 10 MG/2 ML VIAL IVP PRN (15:33)
[2016-10-13] MEDS ORDERED: NS 500 ML IV PRN (15:33)
[2016-10-13] MEDS ORDERED: diphenhydrAMINE 25 MG CAP PO PRN (15:33)
[2016-10-13] MEDS ORDERED: ONDANSETRON DISINTEGRATING 4 MG TAB PO PRN (15:33)
[2016-10-13] MEDS ORDERED: TEMAZEPAM 15 MG CAP PO PRN (15:33)
[2016-10-13] MEDS ORDERED: PHARMACY PAIN CONSULT 1 EA MISC PRN (15:33)
[2016-10-13] MEDS ORDERED: DIPHENOXYLATE/ATROPINE LOMOTIL 1 TAB PO PRN (15:33)
[2016-10-13] MEDS ORDERED: MAGNESIUM HYDROXIDE 30 ML UDCUP PO PRN (15:33)
[2016-10-13] MEDS ORDERED: BISACODYL 10 MG SUPP PR PRN (15:33)
[2016-10-13] MEDS ORDERED: PROMETHAZINE HCL 25 MG SUPPR PR PRN (15:33)
--- NOTE | 2016-10-13 15:45 | POSTANESTH ---
Post Anesthetic Evaluation Cardiovascular Status: Normal, Stable Respiratory Status: Normal, Stable Level of Consciousness/Mental Status: Can Participate in Eval, Alert and Oriented Pain Control: Adequate, Prn Tx Ordered Nausea/Vomiting Control: Adequate, Prn Tx Ordered Complications Possibly Related to Anesthesia: None Noted (Pt able to move feet bilaterally. Insensate still secondary to spinal block.)
[2016-10-13] MEDS ORDERED: oxyCODONE IR 5 MG TAB ONE (16:48)
[2016-10-13] MEDS: oxyCODONE IR 5 MG TAB PO PRN ×4 (16:49→23:49)
[2016-10-13] MEDS: ACETAMINOPHEN 325 MG TAB PO SCH ×2 (17:58→23:48)
[2016-10-13] MEDS: WARFARIN SODIUM 5 MG TAB PO SCH (17:59)
[2016-10-13] MEDS: SENNOSIDES/DOCUSATE SODIUM TAB PO SCH (21:03)
[2016-10-13] MEDS: CYCLOBENZAPRINE 10 MG TAB PO PRN (21:04)
[2016-10-13] MEDS: FAMOTIDINE 20 MG TAB PO SCH (21:05)
[2016-10-13] MEDS ORDERED: NITROGLYCERIN 0.4 MG BTL SL PRN (21:07)
[2016-10-13] MEDS: LR 1,000 ML IV SCH (21:11)
[2016-10-13] MEDS: ceFAZolin 2 GM/DEXTROSE 100 ML IV SCH (21:12)
[2016-10-14] MEDS: ACETAMINOPHEN 325 MG TAB PO SCH ×3 (05:03→17:23)
[2016-10-14] MEDS: oxyCODONE IR 5 MG TAB PO PRN ×5 (05:04→22:14)
[2016-10-14] MEDS: LR 1,000 ML IV SCH ×3 (05:26→22:15)
[2016-10-14 05:52] LABS: HEMOGLOBIN 10.6 g/dL (13.7-17.5)
[2016-10-14 06:02] LABS: INR 1.21 (0.83-1.16); PROTIME(PATIENT) 15.3 SEC (12.0-15.0)
[2016-10-14] MEDS: ceFAZolin 2 GM/DEXTROSE 100 ML IV SCH (06:12)
--- NOTE | 2016-10-14 07:05 | SOAPPROG ---
SOAP Progress Note Assessment/Plan: Assessment: Awake and alert. Moderate pain. He has not been of much. Hemoglobin and hematocrit are adequate. His drain has been removed. He is voiding spontaneously. Films look good. Plan: He has multiple medical conditions and has been slow to mobilize. He needs another day in the hospital. Continue physical therapy. Continue Coumadin and Lovenox. 10/14/16 07:03 Objective: Vital Signs Temp Pulse Resp BP Pulse Ox 36.6 C 59 L 15 132/80 H 97 10/14/16 04:00 10/14/16 04:00 10/14/16 04:00 10/14/16 04:00 10/14/16 04:00 Laboratory Results 10/14/16 05:30 10/13/16 10/14/16 10/15/16 05:59 05:59 05:59 Intake Total 2241 Output Total 1805 Balance 436 PT 15.3 SEC (12.0-15.0) H 10/14/16 05:30 INR 1.21 (0.83-1.16) H 10/14/16 05:30 ICD10 Worksheet Patient Problems: Problems Problem Status Onset Osteoarthritis of left knee Acute Chest pain Acute
[2016-10-14] MEDS: FAMOTIDINE 20 MG TAB PO SCH ×2 (08:24→20:03)
[2016-10-14] MEDS: FERROUS SULFATE 140 MG TAB.ER PO SCH (08:24)
[2016-10-14] MEDS: ISOSORBIDE MONONITRATE 30 MG TAB.SR PO SCH (08:25)
[2016-10-14] MEDS: PANTOPRAZOLE SODIUM 40 MG TAB PO SCH (08:25)
[2016-10-14] MEDS: FUROSEMIDE 40 MG TAB PO SCH (08:25)
[2016-10-14] MEDS: SENNOSIDES/DOCUSATE SODIUM TAB PO SCH ×2 (08:26→20:03)
[2016-10-14] MEDS: METOPROLOL TARTRATE 25 MG TAB PO SCH ×2 (08:26→20:03)
[2016-10-14] MEDS: CYCLOBENZAPRINE 10 MG TAB PO PRN ×2 (08:27→20:03)
[2016-10-14] MEDS: ENOXAPARIN 40 MG/0.4 ML SYR SC SCH (08:28)
--- NOTE | 2016-10-14 08:28 | GOP ---
[f rep st] OPERATIVE REPORT DATE OF OPERATION: 10/13/2016 SURGEON: Vaibhav Yu MD CORPORATE COMMUNICATIONS ASSOCIATE: MAEGAN Cleary [facility] ANESTHESIA: A combination of Marcaine spinal, IV sedation, and adductor canal block. ANESTHESIOLOGIST: Kristy Marie MD PREOPERATIVE DIAGNOSIS: Left knee severe degenerative arthritis. POSTOPERATIVE DIAGNOSIS: Left knee severe degenerative arthritis. PROCEDURE PERFORMED: Left total knee arthroplasty, cemented, Ramsay and Nephew Journey II, posterior stabilized. FINDINGS: DESCRIPTION OF PROCEDURE: The patient was given 2 g of preoperative IV Ancef within 60 minutes of s urgery. He also received IV tranexamic acid at a dose of 10 mg/kg. He was placed on the operating room table and given spinal anesthesia with Marcaine by Dr. Marie. He was then placed supine and given IV sedation. A Mukherjee catheter was not used. He wore a stocking and SCD on the nonoperative l eg. His left lower extremity was prepped with ChloraPrep from the upper thigh tourniquet to the tip s of the toes. It was draped free using sterile sheets, stockinette, and Ioban plastic adhesive rowdy pe. The lower leg was wrapped with compressive Coban. The leg was exsanguinated with elevation and a 6-inch compressive wrap and the pneumatic tourniquet was inflated to 275 mmHg. The World Health Organization time-out was performed to verify the correct patient identity and the correct surgical side and site. The [place] time-out was also performed. The Blockchainayo leg holding device was sterilely attached to the operating room table and used throughout the procedure to help position the knee. A straight midline incision made centered on the patella. Subcutaneous tissues were sharply divided and hemostasis was obtained using electrocautery. The patient had a large, chronically inflamed and thickened prepatellar bursa. This was quite exten sive. It had a thickened hyalinized membrane throughout. A portion of this hyalinized thickened me mbrane was excised. I was cautious to avoid devascularizing the skin. A medial subcutaneous flap w as developed and the capsule and synovium were opened in a medial parapatellar fashion. Extensive d egenerative changes were present, particularly in the patellofemoral joint. He had severely eroded the lateral facet of his patella. The medial capsule and periosteum were elevated off the rim of th e medial tibial plateau around to the posteromedial corner. I did only a minimal amount of release on the medial side of the knee. In order to improve exposure, his patella was prepared first. The original thickness of the patella was measured. Peripheral osteophytes were removed. I cut a flat surface on the back of the patella. It was sized for a 38 mm resurfacing component. I removed enou gh bone from the patella such that the remaining bone plus the thickness of the patellar component r e-created the original thickness of the patella. The composite patellar thickness was 22 mm. The intramedullary alignment guide system was used to set up the distal femoral cut. The distal fem ur was cut in 5 degrees of valgus. Because of a mild preoperative flexion contracture, I made a +2 mm cut on the distal femur. The sizing jig was used to determine proper femoral sizing. I shifted the jig anteriorly 2 mm in order to accommodate a size 8 femoral component without notching the ante rior cortex. The 5-in-1 cutting block was applied and the anterior and posterior condylar cuts and chamfer cuts were made. The final jig was used to remove the central portion of the distal femur to accommodate the posterior stabilized femoral component. I was careful to determine proper rotation by referencing off Whitesides line. Each cut was checked for accuracy before and after it was made . The femur was sized for a size 8 posterior stabilized component. The trial component was tapped securely into place and was a good fit. Next, the tibia was prepared. The proximal tibial cut was made using the extramedullary alignment g uide system. The cut was made in a few degrees of posterior slope. I was careful to achieve proper varus valgus alignment and proper rotation. The posterior compartment was cleared of meniscal remn ants. Osteophytes were removed from the back of his femoral condyles. I checked the flexion and ex tension gaps and they were equal, balanced, and rectangular. The tibia was sized for a size 8 component. With the trial components in place, I selected a 10 mm polyethylene posterior stabilized tibial insert. The knee came to full extension and flexed to 130 degrees. There was no overstuffing in flexion. The collateral ligaments were stable and balanced i n 90 degrees of flexion and full extension. The trial patellar button was applied and patellar trac darlene was checked. Tracking was excellent without any digital pressure. Because of his allergies to antiinflammatory medications, I did not use a joint cocktail. A second dose of IV tranexamic acid was given at a dose of 10 mg/kg. The surfaces were prepared for cementing. They were carefully cleaned with the pulsating lavage irr igation and thoroughly dried. The CarboJet device was used to blow dry the cancellous surfaces. A double batch of high viscosity methylmethacrylate cement with 2 g of powdered vancomycin added was m ixed. While it was still in a semiliquid state, all 3 components were cemented in place. Excess ce ment was removed before it hardened. The 10 mm trial tibial insert was re-tried and was the proper thickness. The actual component was i nserted and locked into place. The knee was thoroughly irrigated 1 final time with a dilute Betadin e solution. The tourniquet was deflated and the total tourniquet time was 1 hour and 3 minutes. He had quite a bit of bleeding following release of the tourniquet. I attempted to cauterize recogn ized bleeding points. However, I decided to use a postoperative draining. A 15-Frisian round PVC dr grider was brought out through the lateral aspect of the suprapatellar pouch and laid in the lateral gu tter. The vastus medialis portion of the extensor mechanism was repaired with several interrupted f [id number] #2 FiberWire sutures. The capsule and synovium were closed first with multiple inter rupted [id number] 0 PDS sutures, followed by a running #2 barbed Ethicon Stratafix PDO suture. Subcutaneous tissues were closed with a running 0 barbed Ethicon Stratafix Monoderm suture. The sk in was closed with a running 3-0 barbed Ethicon Stratafix Monoderm subcuticular suture. The skin wa s sealed with half-inch Steri-Strips. The wound was covered with Xeroform gauze and flat 4 x 4's an d the knee was wrapped in a compressive wrap with Kerlix, ABDs, and 6-inch compressive wraps. This was done from the thigh to the ankle. A long-leg SWATHI stocking and SCD were applied followed by the cooling device. The patient wore a stocking and SCD on the opposite leg during the procedure. I used a size 8 cemented Ramsay and Nephew Oxinium posterior stabilized femoral component, a size 8 c emented tibial baseplate, a 10 mm posterior stabilized tibial insert, and a 38 mm cemented round all -polyethylene resurfacing patellar component. The estimated blood loss following deflation of the tourniquet was about 200 mL. The sponge and nee dle count were correct on 2 occasions. He was awakened from anesthesia, transferred to his hospital [facility], and taken to PACU in satisfacto ry condition. There were no recognized intraoperative complications. In the PACU, for additional postoperative pain control, Dr. Marie performed an adductor canal bloc kSheila Artis and Jonas Ann acted as surgical assistants. Their assistance was a medical neces sity for safe completion of the procedure. Copy requested to: Dr. Jacobo [place] /[id number]/MODL
[2016-10-14] MEDS ORDERED: NON-FORMULARY NEW DRUG (Omeprazole [Omeprazole] 40 MG) PO SCH (09:00)
[2016-10-14] MEDS ORDERED: NON-FORMULARY NEW DRUG (Isosorbide Mononitrate [Isosorbide Mononitrate Er] 60 MG) PO SCH (09:00)
[2016-10-14] MEDS ORDERED: METOPROLOL TARTRATE 50 MG TAB PO SCH (09:00)
[2016-10-14] MEDS: WARFARIN SODIUM 5 MG TAB PO SCH (15:39)
[2016-10-14] MEDS: DOXAZOSIN MESYLATE 4 MG TAB PO SCH (20:03)
[2016-10-14] MEDS ORDERED: DOXAZOSIN MESYLATE 4 MG PO SCH (21:00)
[2016-10-15] MEDS: ACETAMINOPHEN 325 MG TAB PO SCH ×4 (00:02→16:57)
[2016-10-15 05:05] LABS: HEMATOCRIT 26.7 % (40.0-51.0); HEMOGLOBIN 8.7 g/dL (13.7-17.5)
[2016-10-15 05:14] LABS: INR 1.29 (0.83-1.16); PROTIME(PATIENT) 16.1 SEC (12.0-15.0)
--- NOTE | 2016-10-15 07:23 | SOAPPROG ---
SOAP Progress Note Assessment/Plan: Assessment: Awake and alert. Moderate pain. He has not been of much. Hemoglobin and hematocrit are adequate. His drain has been removed. He is voiding spontaneously. Films look good. Plan: He has multiple medical conditions and has been slow to mobilize. He needs another day in the hospital. Continue physical therapy. Continue Coumadin and Lovenox. 10/14/16 07:03 10/15/16 07:21 Afebrile. Moderate pain. He is on narcotics. Hemoglobin and hematocrit have drop to 8.7/26.7. Very slow progress with mobilization and ambulation. His INR is still not therapeutic. His wound is clean and dry. Moderate knee swelling. Plan: His progress is very slow. I recommend transfer to a alf facility for continued rehabilitation. That will be planned for today. Objective: Vital Signs Temp Pulse Resp BP Pulse Ox 36.9 C 81 16 141/72 H 92 10/15/16 04:00 10/15/16 04:00 10/15/16 04:00 10/15/16 04:00 10/15/16 04:00 Laboratory Results 10/15/16 04:45 10/14/16 10/15/16 10/16/16 05:59 05:59 05:59 Intake Total 2241 2700 Output Total 1805 1875 300 Balance 436 825 -300 PT 16.1 SEC (12.0-15.0) H 10/15/16 04:45 INR 1.29 (0.83-1.16) H 10/15/16 04:45 ICD10 Worksheet Patient Problems: Problems Problem Status Onset Osteoarthritis of left knee Acute Chest pain Acute
[2016-10-15] MEDS: traMADol 50 MG TAB PO PRN ×2 (08:35→20:09)
[2016-10-15] MEDS: ENOXAPARIN 40 MG/0.4 ML SYR SC SCH (08:35)
[2016-10-15] MEDS: FAMOTIDINE 20 MG TAB PO SCH ×2 (08:35→20:09)
[2016-10-15] MEDS: ISOSORBIDE MONONITRATE 30 MG TAB.SR PO SCH (08:35)
[2016-10-15] MEDS: SENNOSIDES/DOCUSATE SODIUM TAB PO SCH ×2 (08:35→20:10)
[2016-10-15] MEDS: PANTOPRAZOLE SODIUM 40 MG TAB PO SCH (08:35)
[2016-10-15] MEDS: FERROUS SULFATE 140 MG TAB.ER PO SCH (08:35)
[2016-10-15] MEDS: METOPROLOL TARTRATE 25 MG TAB PO SCH ×2 (08:36→20:09)
[2016-10-15] MEDS: FUROSEMIDE 40 MG TAB PO SCH (08:36)
[2016-10-15] MEDS: CYCLOBENZAPRINE 10 MG TAB PO PRN (13:20)
[2016-10-15] MEDS: WARFARIN SODIUM 5 MG TAB PO SCH (16:57)
--- NOTE | 2016-10-15 17:52 | GDS ---
[f rep st] DISCHARGE SUMMARY ADMISSION DIAGNOSIS: Left knee severe degenerative arthritis. DISCHARGE DIAGNOSIS: Left knee severe degenerative arthritis. OPERATIONS PERFORMED: October 13, 2016, a left total knee arthroplasty. POSTOPERATIVE COMPLICATIONS: None. CONDITION ON DISCHARGE: Improved. DESCRIPTION OF HOSPITAL COURSE: The patient was admitted to the hospital on the morning of surgery. His admission hemoglobin and hematocrit were 11.3 and 35.0. Platelet count 176,000. BUN 25, crea tinine 1.3. The same day, under a combination of Marcaine, spinal anesthesia, IV sedation, and an a dductor canal block, he underwent a left total knee arthroplasty. Postoperatively, a drain was used overnight. He was treated with multimodal DVT prophylaxis, including resumption of his Coumadin an d the use of Lovenox. On the second postoperative day his hemoglobin and hematocrit were 8.7 and 26 .7. By the time of discharge, his INR was only 1.29. His progress was very slow with physical meteorologist apy for ambulation. By the time of discharge, his wound was clean and healing properly. He still r equired maximal assistance to get out of bed. DISPOSITION: The patient is discharged to a skilled rehab facility. Continue SWATHI stockings for 1 w [place]. He will continue Coumadin 7.5 mg 4 days a week and 5 mg 3 days a week. He will remain on Love nox 40 mg subcu daily until October 19, 2016. He has prescriptions for oxycodone and tramadol for pain control. I will see him back in the office on October 29, 2016. If any problems, he is to call me a t the office. Copy requested to: Dr. Jacobo Newman [place], [place] Dr. Luis Daniel Fraire [place], [place] /[id number]/MODL
[2016-10-15] MEDS: DOXAZOSIN MESYLATE 4 MG TAB PO SCH (20:10)
[2016-10-16] MEDS: ACETAMINOPHEN 325 MG TAB PO SCH ×3 (02:28→12:46)
[2016-10-16 04:36] VITALS: RESP 16
[2016-10-16 04:56] LABS: INR 1.48 (0.83-1.16); PROTIME(PATIENT) 17.9 SEC (12.0-15.0)
[2016-10-16] MEDS: ISOSORBIDE MONONITRATE 30 MG TAB.SR PO SCH (08:26)
[2016-10-16] MEDS: FERROUS SULFATE 140 MG TAB.ER PO SCH (08:27)
[2016-10-16] MEDS: ENOXAPARIN 40 MG/0.4 ML SYR SC SCH (08:27)
[2016-10-16] MEDS: FUROSEMIDE 40 MG TAB PO SCH (08:27)
[2016-10-16] MEDS: FAMOTIDINE 20 MG TAB PO SCH (08:27)
[2016-10-16] MEDS: CYCLOBENZAPRINE 10 MG TAB PO PRN (08:27)
[2016-10-16] MEDS: SENNOSIDES/DOCUSATE SODIUM TAB PO SCH (08:27)
[2016-10-16] MEDS: PANTOPRAZOLE SODIUM 40 MG TAB PO SCH (08:27)
--- NOTE | 2016-10-16 11:10 | PDIAF ---
- Diagnosis Code Status: Full Code - Medication Management Discharge Medications: Medications to Continue on Transfer Isosorbide Mononitrate [Isosorbide Mononitrate ER] 60 mg PO DAILY 08/12/16 [ Last Taken 10/12/16 08:00] Metoprolol Tartrate [Lopressor 50 mg (*)] 25 mg PO BID 08/12/16 [Last Taken 20:00] Nitroglycerin [Nitrostat 0.4 mg (*)] 0.4 mg SL AD PRN 08/12/16 [Last Taken Unknown] Omeprazole 40 mg PO DAILY 08/12/16 [Last Taken 10/13/16 07:30] Warfarin Sodium [Coumadin 5MG (*)] 5 mg PO MWF@16 08/12/16 [Last Taken 10/07/16] Acetaminophen [Tylenol 325mg (*)] 650 mg PO Q4HRS PRN #0 tab 08/14/16 [Last Taken 10/06/16] Furosemide [Lasix 40 MG (*)] 40 mg PO DAILY 30 Days 08/14/16 [Last Taken 10:00] Metolazone 2.5 mg PO PRN PRN #30 tablet 10/13/16 [Last Taken Unknown] Warfarin Sodium [Coumadin 5MG (*)] 7.5 mg PO SUTUTHSA@16 10/13/16 [Last Taken ] Acetaminophen [Tylenol 325mg (*)] 650 mg PO Q6HRS #0 tab 10/15/16 [Last Taken Unknown] Doxazosin Mesylate 4 mg PO HS #0 tablet 10/15/16 [Last Taken Unknown] Enoxaparin [Lovenox 40 MG (*)] 40 mg SC DAILY #4 syr 10/15/16 [Last Taken Unknown] Ferrous Sulfate [Slow Fe 140 MG (*)] 140 mg PO DAILY #30 tab.er 10/15/16 [Last Taken Unknown] oxyCODONE IR [Oxycodone Ir (*)] 5 - 10 mg PO Q3HRS PRN #30 tab 10/15/16 [Last Taken Unknown] traMADol [Ultram 50 mg (*)] 50 mg PO Q6HRS PRN #30 tab 10/15/16 [Last Taken Unknown] Discharge Medications: Refer to the Discharge Home Medication list for PRN reason. - Orders Services needed: Physical Therapy, Occupational Therapy Oxygen: as needed Diet Recommendation: no restrictions on diet Diet Texture: Regular Texture Diet Kevin Stockings Discontinue Date: October 20, 2016 Wound Care Instructions: [place] dsg. OK to shower Activity/Weight Bearing Restrictions: None - Labs/Radiology PT/INR Date: 10/18/16 (every Tuesday and . Send results to [facility] coag clinic) - Follow Up Care Current Providers and Referrals: RICHA RODRIGUEZ [Other] Vaibhav Yu MD [Medical Doctor] - 10/29/16 11:30 am
--- NOTE | 2016-10-16 11:13 | SOAPPROG ---
SOAP Progress Note Assessment/Plan: Assessment: Awake and alert. Moderate pain. He has not been of much. Hemoglobin and hematocrit are adequate. His drain has been removed. He is voiding spontaneously. Films look good. Plan: He has multiple medical conditions and has been slow to mobilize. He needs another day in the hospital. Continue physical therapy. Continue Coumadin and Lovenox. 10/14/16 07:03 10/15/16 07:21 Afebrile. Moderate pain. He is on narcotics. Hemoglobin and hematocrit have drop to 8.7/26.7. Very slow progress with mobilization and ambulation. His INR is still not therapeutic. His wound is clean and dry. Moderate knee swelling. Plan: His progress is very slow. I recommend transfer to a intermediate facility for continued rehabilitation. That will be planned for today. 10/16/16 11:11 Pt not seen. I spoke with his nurse. He was supposed to go to SNF yesterday, but arrangements couldn't be completed. He remains slow and weak. INR is slowly increasing. Contnue lovenox for 3 or 4 more days. To SNF today. Objective: Vital Signs Temp Pulse Resp BP Pulse Ox 36.8 C 74 16 110/57 L 94 10/16/16 07:48 10/16/16 07:48 10/16/16 04:00 10/16/16 08:26 10/16/16 07:48 Laboratory Results 10/15/16 04:45 10/15/16 10/16/16 10/17/16 05:59 05:59 05:59 Intake Total 2700 300 400 Output Total 1875 1052 Balance 825 -752 400 PT 17.9 SEC (12.0-15.0) H 10/16/16 04:33 INR 1.48 (0.83-1.16) H 10/16/16 04:33 ICD10 Worksheet Patient Problems: Problems Problem Status Onset Osteoarthritis of left knee Acute Chest pain Acute
[2016-10-16] MEDS: METOPROLOL TARTRATE 25 MG TAB PO SCH (11:36)
[2016-10-16 12:25] VITALS: BP 111/62; PULSE 874; TEMP 98.5; O2SAT 91
[2016-10-16] MEDS: oxyCODONE IR 5 MG TAB PO PRN (12:46)
[2016-10-16] MEDS: traMADol 50 MG TAB PO PRN (13:37)
== END 2016-10-16 14:03 | DRG 470 ==
LOC: F3E 09:38 → F3N 16:58
PROVIDERS: ADMIT Orthopaedic Surgery; ATTEND Orthopaedic Surgery
PROC: 0SRD0J9 Replacement of Left Knee Joint with Synthetic Substitute, Cemented, Open Approach (ICD-10-PCS; principal; 2016-10-13 12:00)
DX: M17.12 Unilateral primary osteoarthritis, left knee (principal); I10 Essential (primary) hypertension; I25.10 Atherosclerotic heart disease of native coronary artery without angina pectoris; Z95.5 Presence of coronary angioplasty implant and graft
CPT/HCPCS: 97110-GP; 97116-GP; 97161-GP; 97165-GO; 97530-GO; 97535-GO; C1713; G8978-GP-CJ; G8979-GP-CI; G8987-GO-CK; G8988-GO-CI; J0171; J0360; J0690; J1100; J1650; J1885; J2704; J2795; J3010; J3370

== ENCOUNTER → 2017-07-26 | Outpatient (CLI) | payer OTHER, MEDICARE | LOC: BHLMT 14:45 | PROVIDERS: ATTEND Internal Medicine Cardiovascular Disease | DX: R55 Syncope and collapse (principal); I25.10 Atherosclerotic heart disease of native coronary artery without angina pectoris; G45.9 Transient cerebral ischemic attack, unspecified | CPT/HCPCS: 93225-PO; 93226-PO; 93880-PO ==